=== PATIENT | male | born 1955 | race Caucasian/White ===

== ENCOUNTER 2019-05-25 12:00 | Emergency (ER) | payer MEDICARE, OTHER ==
[2019-05-25 12:46] VITALS: BP 139/94
[2019-05-25] MEDS ORDERED: Ondansetron ODT TAB* 4 MG PO ONE (13:19)
--- NOTE | 2019-05-25 13:28 | UC ---
Abdominal Pain Male HPI - HPI Summary HPI Summary: Pt presents with c/o abdominal pain, nausea, vomiting, fatigue, weakness, chills , bloating X1 day. Pt reports that he has had "stomach" problems for a year and is supposed to have an endoscopy but recently moved to the area. Pt denies unintended weight loss, night sweats or black tarry stools. Pt does report a recent slight raise in PSA in the last 6 months. - History of Current Complaint Chief Complaint: UCGI Stated Complaint: BODY ACHES,DIARRHEA,STOMACH ACHE,VOMITTING Time Seen by Provider: 05/25/19 12:33 Hx Obtained From: Patient Onset/Duration: Sudden Onset, Lasting Hours, Still Present Timing: Constant Severity Initially: Moderate Severity Currently: Moderate Pain Intensity: 6 Location: Diffuse Radiates: No Character: Colicy, Cramping, Dull, Sharp Aggravating Factor(s): Food, Movement, Deep Breaths Alleviating Factor(s): Nothing Associated Signs And Symptoms: Positive: Nausea, Vomiting, Diarrhea - Risk Factors Testicular Torsion: Negative Cardiac Risk Factors: Negative - Allergies/Home Medications Allergies/Adverse Reactions: Allergies Allergy/AdvReac Type Severity Reaction Status Date / Time No Known Allergies Allergy Verified 05/25/19 12:34 PMH/Surg Hx/FS Hx/Imm Hx Previously Healthy: Yes - Surgical History Surgical History: Yes Surgery Procedure, Year, and Place: bilateral knee surgery - Family History Known Family History: Positive: Cardiac Disease - Social History Occupation: Retired Lives: With Family Alcohol Use: Occasionally Substance Use Type: None Smoking Status (MU): Never Smoked Tobacco Have You Smoked in the Last Year: No - Immunization History Vaccination Up to Date: Yes Review of Systems All Other Systems Reviewed And Are Negative: Yes Constitutional: Positive: Chills, Fatigue Skin: Positive: Negative Eyes: Positive: Negative ENT: Positive: Sore Throat Respiratory: Positive: Negative Cardiovascular: Positive: Negative Gastrointestinal: Positive: Abdominal Pain, Vomiting, Diarrhea, Nausea Genitourinary: Positive: Negative Motor: Positive: Negative Neurovascular: Positive: Negative Musculoskeletal: Positive: Myalgia Neurological: Positive: Headache, Weakness Psychological: Positive: Negative Is Patient Immunocompromised?: No Physical Exam Triage Information Reviewed: Yes Appearance: Ill-Appearing Vital Signs: Initial Vital Signs Temp 98.2 F 05/25/19 12:36 Pulse 83 05/25/19 12:36 Resp 18 05/25/19 12:36 BP 139/94 05/25/19 12:36 Pulse Ox 99 05/25/19 12:36 Vital Signs Reviewed: Yes Eye Exam: Normal ENT Exam: Normal Dental Exam: Normal Neck exam: Normal Respiratory Exam: Normal Cardiovascular Exam: Normal Abdomen Description: Positive: Other: - umbilical pain Bowel Sounds: Positive: Present Musculoskeletal Exam: Normal Neurological Exam: Normal Psychological Exam: Normal Skin Exam: Normal Diagnostics - Radiology No standard instances Radiology Interpretation Completed By: Radiologist - Accounts Payable Accountant: Star Shaw Daniel, ([id number]) Stave Log Cut Off Saw Operator: BARON (NUANCE) Report Date: 05/25/2019 13:19:00 Report Status: Final Start of Report Content ====== Patient Name: EFRAIN IYER Medical Record#: [id number] Ordering Physician: Gosia Vincent CHECKROOM ATTENDANT Acct.#: [id number] : 1955 Age: 63 Sex: M Location: [facility] Exam Date: 05/25/19 1319 ADM Status: [facility] ER Order Information: CT ABD/PEL W/O Accession Number: [id number] CPT: 18648 CLINICAL HISTORY: abdominal pain, kidney stone protocal COMPARISON: None relevant available at the time of dictation. TECHNIQUE: Multiple contiguous axial CT scans were obtained of the abdomen and pelvis, without intravenous contrast enhancement. Coronal and sagittal multiplanar reformations are submitted for review. Oral contrast was not administered. FINDINGS: Evaluation is limited due to the lack of intravenous contrast. This limits evaluation of the solid organs and vasculature. LUNG BASES: The lung bases are clear. LIVER: The liver is diffusely low in attenuation compared to the spleen. There are no focal hepatic parenchymal masses. BILE DUCTS: There is no intrahepatic or extrahepatic biliary dilatation. GALLBLADDER: The gallbladder is normal, without pericholecystic inflammatory change. PANCREAS: The pancreas is normal, without mass or ductal dilatation. SPLEEN: Normal in size and appearance. UPPER GI TRACT: Evaluation of the gastrointestinal tract is limited by incomplete gastric distention. The upper GI tract is unremarkable. SMALL BOWEL AND MESENTERY: The small bowel is normal in contour, course, and caliber. There is no obstruction or dilatation. COLON: There are occasional diverticula of the distal colon without pericolic inflammatory change.. There is a tubular, vermiform, hollow viscus that is blind ending, and originates from the cecum, consistent with a normal appendix. There is no periappendiceal inflammatory change. This is best seen on axial images 60 through 70. ADRENALS: Normal bilaterally. KIDNEYS: The kidneys are normal in shape, size, contour, and axis. There is no hydronephrosis or nephrolithiasis. BLADDER: The bladder is smooth in contour. PELVIC ORGANS: The prostate is diffusely enlarged. The seminal vesicles are symmetric. AORTA: There is calcific atherosclerotic disease of the abdominal aorta and its branches, without aneurysmal dilatation IVC: Unremarkable LYMPH NODES: There is no lymphadenopathy by size criteria. ABDOMINAL WALL: There is no evidence for abdominal wall hernia. BONES AND SOFT TISSUES: Degenerative changes are noted. OTHER: None IMPRESSION: FATTY INFILTRATION OF THE LIVER. NO HYDRONEPHROSIS OR NEPHROLITHIASIS. <Electronically signed by Star Shaw MD in OV> 05/25/19 1355 Dictated By: Star Shaw MD Dictated Date/Time: 05/25/19 1346 Transcribed Date/Time: 05/25/19 1346 Copy to: CC:Marvin Helm MD; Gosia Vincent CHECKROOM ATTENDANT; No Primary Care Phys,NOPCP Imaging - [facility] Imaging - [facility] Imaging - [facility] [id number] [place] [id number] ph [phone] ph [phone] ph ) End of Report Content Abd Pain Male Course/Dx - Differential Dx/Clinical Impression Differential Diagnosis/HQI/PQRI: Diverticulitis, Pancreatitis Provider Diagnosis: Abdominal pain, Nausea & vomiting Discharge ED - Sign-Out/Discharge Documenting (check all that apply): Patient Departure All imaging exams completed and their final reports reviewed: Yes - Discharge Plan Condition: Stable Disposition: HOME Prescriptions: Ondansetron HCl [Zofran] 8 mg PO Q8H PRN #15 tablet PRN Reason: Nausea Patient Education Materials: Loperamide (By mouth), Gastroenteritis (ED), Acute Nausea and Vomiting (ED) Referrals: [facility] [Outside] Star Estes MD [Medical Doctor] - If Needed No Primary Care Phys,NOPCP [Primary Care Provider] - Additional Instructions: Please establish care care with with a PCP as soon as possible. - Billing Disposition and Condition Condition: STABLE Disposition: Home - Attestation Statements Provider Attestation: Per institutional requirements, I have reviewed the chart, however, I was not consulted specifically or made aware of this patient by the midlevel provider. I did not personally evaluate, interact with , or disposition this patient.
== END 2019-05-25 14:37 | disposition home or self-care (01) ==
LOC: UCCORT 12:00
DX: R10.9 Unspecified abdominal pain (principal); R11.2 Nausea with vomiting, unspecified; R53.83 Other fatigue; R53.1 Weakness; R68.83 Chills (without fever); R19.7 Diarrhea, unspecified; R51 Headache; M79.10 Myalgia, unspecified site
CPT/HCPCS: 74176; 99202; A9270-GY; G0463

== ENCOUNTER 2019-05-31 14:26 | Emergency (ER) | payer MEDICARE, OTHER ==
[2019-05-31 14:47] VITALS: BP 127/80
--- NOTE | 2019-05-31 16:28 | UC ---
Throat Pain/Nasal Giancarlo HPI - HPI Summary HPI Summary: Patient is a 63yo male presenting with sinus congestion and tenderness x1 week. Patient states the week before he had cold symptoms which have mostly resolved. Notes that he also has itchy eye, PND, mild productive cough, and sore throat x 3 days. Notes b/l ear pressure as well. Denies fever and chills. Denies SOB and wheezing. Denies chest pain. Patient states he does have seasonal allergies for which he take Claritin, but has not taken any since march. Patient also asks if he can have refill on pantoprazole because he recently moved and has not been able to [facility]. - History of Current Complaint Chief Complaint: UCGeneralIllness Stated Complaint: ST,ITCHY EYES,COUGH Hx Obtained From: Patient Onset/Duration: Gradual Onset, Lasting Weeks Pain Intensity: 0 Pain Scale Used: 0-10 Numeric - Allergies/Home Medications Allergies/Adverse Reactions: Allergies Allergy/AdvReac Type Severity Reaction Status Date / Time No Known Allergies Allergy Verified 05/31/19 14:40 Home Medications: Home Medications Acetaminophen [Tylenol Extra Strength] 2 tab PO ONCE 05/31/19 [History Confirmed 05/31/19] Pantoprazole TAB * [Protonix TAB*] 1 tab PO TID 05/31/19 [History Confirmed ] PMH/Surg Hx/FS Hx/Imm Hx - Surgical History Surgical History: Yes Surgery Procedure, Year, and Place: bilateral knee surgery - Family History Known Family History: Positive: Cardiac Disease - Social History Alcohol Use: Occasionally Substance Use Type: None Smoking Status (MU): Never Smoked Tobacco Have You Smoked in the Last Year: No - Immunization History Vaccination Up to Date: Yes Review of Systems All Other Systems Reviewed And Are Negative: Yes Constitutional: Positive: Negative Eyes: Positive: Other - itchy eyes ENT: Positive: Sore Throat, Ear Ache - b/l, Nasal Discharge - PND, Sinus Congestion, Sinus Pain/Tenderness Respiratory: Positive: Cough. Negative: Shortness Of Breath Cardiovascular: Positive: Negative Gastrointestinal: Positive: Negative Musculoskeletal: Positive: Negative Neurological: Positive: Headache Physical Exam Triage Information Reviewed: Yes Appearance: Well-Appearing, No Pain Distress, Well-Nourished Vital Signs: Initial Vital Signs Temp 97.6 F 11/20/19 14:41 Pulse 66 05/31/19 14:41 Resp 18 05/31/19 14:41 BP 127/80 05/31/19 14:41 Pulse Ox 98 05/31/19 14:41 Vital Signs Reviewed: Yes Eyes: Positive: Conjunctiva Clear ENT: Positive: Hearing grossly normal, Pharyngeal erythema, Nasal congestion, Nasal drainage - PND, TMs normal, Sinus tenderness - frontal, Uvula midline. Negative: Tonsillar swelling, Tonsillar exudate Neck exam: Normal Neck: Positive: Supple, Nontender, No Lymphadenopathy Respiratory Exam: Normal Respiratory: Positive: Lungs clear, Normal breath sounds, No respiratory distress Cardiovascular Exam: Normal Cardiovascular: Positive: RRR Neurological: Positive: Alert Psychological: Positive: Age Appropriate Behavior Throat Pain/Nasal Course/Dx - Course Course Of Treatment: I treated the patient with Augmentin for sinusitis. Also instructed to continue with allergy medicine and add Flonase spray for symptomatic relief. [facility]. I also provided the patient with a refill of his Protonix. Patient voiced understanding and agreed with the treatment plan. - Differential Dx/Diagnosis Provider Diagnosis: Sinusitis, Encounter for medication refill Discharge ED - Sign-Out/Discharge Documenting (check all that apply): Patient Departure All imaging exams completed and their final reports reviewed: No Studies - Discharge Plan Condition: Stable Disposition: HOME Prescriptions: Amoxicillin/Clavulanate TAB* [Augmentin TAB 875*] 875 mg PO BID #14 tab Pantoprazole TAB * [Protonix TAB*] 40 mg PO DAILY PRN #45 tab PRN Reason: Heartburn Patient Education Materials: Sinusitis (ED) Additional Instructions: As discussed, take Augmentin as prescribed for the treatment of your sinusitis. I recommend also taking your Claritin D along with a Flonase spray to help alleviate allergy symptoms. Get plenty of rest and fluids. Follow up with your primary care doctor if your symptoms persist. - Billing Disposition and Condition Condition: STABLE Disposition: Home
== END 2019-05-31 16:18 | disposition home or self-care (01) ==
LOC: UCCORT 14:26
DX: Z76.0 Encounter for issue of repeat prescription (principal); J32.9 Chronic sinusitis, unspecified; H92.03 Otalgia, bilateral
CPT/HCPCS: 99212; G0463

== ENCOUNTER 2019-06-15 11:47 | Emergency (ER) | payer MEDICARE, OTHER ==
[2019-06-15 12:11] VITALS: BP 137/82
--- NOTE | 2019-06-15 12:54 | UC ---
Throat Pain/Nasal Giancarlo HPI - HPI Summary HPI Summary: Patient is a 63yo male presenting with nasal congestion, sinus pressure and tenderness, fatigue, and mild body aches x5 days. Patient states he was treated for sinus infection ~4weeks ago and it cleared up with augmentin. States that symptoms have returned. Notes h/o chronic sinus infections. Has been worked up in the past and told "nasal sinus tract is extra sensitive." Patient notes spring allergies but states he does not usually produce this much mucus. Denies cough and wheezing. Denies SOB. Denies n/v/d. Denies fever and chills. Denies ear pain but notes fullness b/l. Denies sore throat. States he has taken claritin and used afrin x2 days. - History of Current Complaint Chief Complaint: UCGeneralIllness Stated Complaint: SINUSES/COUGH Hx Obtained From: Patient Onset/Duration: Gradual Onset, Lasting Days Pain Intensity: 4 Pain Scale Used: 0-10 Numeric - Allergies/Home Medications Allergies/Adverse Reactions: Allergies Allergy/AdvReac Type Severity Reaction Status Date / Time No Known Allergies Allergy Verified 06/15/19 12:07 Home Medications: Home Medications Loratadine/Pseudoephedrine [Claritin-D 24 Hour Tablet] 1 tab PO DAILY 06/15/19 [ History Confirmed 06/15/19] Oxymetazoline 0.05% NASAL SPR* [Afrin 0.05% NASAL SPRAY*] 1 spray NASAL Q12H PRN 06/15/19 [History Confirmed 06/15/19] PMH/Surg Hx/FS Hx/Imm Hx - Surgical History Surgical History: Yes Surgery Procedure, Year, and Place: bilateral knee surgery - Family History Known Family History: Positive: Cardiac Disease, Non-Contributory - Social History Occupation: Retired Alcohol Use: Occasionally Substance Use Type: None Smoking Status (MU): Never Smoked Tobacco Have You Smoked in the Last Year: No - Immunization History Vaccination Up to Date: Yes Review of Systems All Other Systems Reviewed And Are Negative: Yes Constitutional: Positive: Fatigue. Negative: Fever, Chills Eyes: Positive: Negative ENT: Positive: Nasal Discharge - PND, Sinus Congestion, Sinus Pain/Tenderness. Negative: Sore Throat, Ear Ache Respiratory: Positive: Negative. Negative: Shortness Of Breath, Cough Cardiovascular: Positive: Negative Gastrointestinal: Positive: Negative Musculoskeletal: Positive: Myalgia - generalized muscle aches Neurological: Negative: Headache Physical Exam Triage Information Reviewed: Yes Appearance: Well-Appearing, No Pain Distress, Well-Nourished Vital Signs: Initial Vital Signs Temp 98.0 F 06/15/19 12:05 Pulse 67 06/15/19 12:05 Resp 15 06/15/19 12:05 BP 137/82 06/15/19 12:05 Pulse Ox 99 06/15/19 12:05 Vital Signs Reviewed: Yes Eyes: Positive: Conjunctiva Clear ENT: Positive: Hearing grossly normal, Nasal congestion, Nasal drainage - PND, TMs normal, Sinus tenderness - frontal and maxillary, Uvula midline. Negative: Pharyngeal erythema, Tonsillar swelling, Tonsillar exudate, Trismus, Muffled voice, Hoarse voice Neck: Positive: Supple, Nontender, No Lymphadenopathy Respiratory Exam: Normal Respiratory: Positive: Lungs clear, Normal breath sounds, No respiratory distress, No accessory muscle use. Negative: Crackles, Rhonchi, Stridor, Wheezing Cardiovascular Exam: Normal Cardiovascular: Positive: RRR Neurological: Positive: Alert Psychological: Positive: Age Appropriate Behavior Skin Exam: Normal Throat Pain/Nasal Course/Dx - Course Course Of Treatment: Prescribed doxycycline and flonase for treatment of recurrent rhinosinusitis. Instructed to discontinue afrin. Instructed to follow up with ENT or pcp within next two weeks for further eval of recurrent sinusitis. Patient voiced understanding and agreed with treatment plan. - Differential Dx/Diagnosis Differential Diagnosis/HQI/PQRI: Sinusitis, URI, Other - allergic rhinitis Provider Diagnosis: Recurrent sinusitis Discharge ED - Sign-Out/Discharge Documenting (check all that apply): Patient Departure All imaging exams completed and their final reports reviewed: No Studies - Discharge Plan Condition: Stable Disposition: HOME Prescriptions: DOXYcycline CAP(*) [DOXYcycline 100MG CAP(*)] 100 mg PO BID #20 cap Fluticasone NASAL SPRAY 50MCG* [Flonase NASAL SPRAY 50MCG*] 2 spray BOTH NARES DAILY PRN #1 btl PRN Reason: Congestion Patient Education Materials: Rhinosinusitis (ED) Referrals: Wilian Yarbrough MD [Medical Doctor] - 2 Weeks Additional Instructions: As discussed, take doxycycline and use the flonase nasal spray as prescribed. Discontinue use of Afrin. You may continue with tylenol for pain relief. A humidifier at night may help relieve symptoms as well. Follow up with your primary care doctor or the ENT referral listed below for further evaluation of recurrent sinus infections. - Billing Disposition and Condition Condition: STABLE Disposition: Home
== END 2019-06-15 13:30 | disposition home or self-care (01) ==
LOC: UCCORT 11:47
DX: J32.9 Chronic sinusitis, unspecified (principal); M79.10 Myalgia, unspecified site
CPT/HCPCS: 99212; G0463